=== PATIENT | female | born 1990 | race Caucasian/White ===

== ENCOUNTER 2016-11-06 12:30 | Emergency (ER) | payer SELFPAY ==
[~2016-11-06 12:30] MED LIST: AMOXICILLIN PO; AUGMENTIN PO; BACTRIM DS TABL1 TAB PO; BIRTH CONTROL PILL PO; GENTAK3.5 GM OP; IBUPROFEN PO; NUVARING V1 VAG.RING VG; PEN-VEE K PO; PRENATAL1 TA1
== END 2016-11-06 13:15 | disposition home or self-care (01) ==
LOC: SED 12:30
DX: J02.9 Acute pharyngitis, unspecified (principal); F17.210 Nicotine dependence, cigarettes, uncomplicated
CPT/HCPCS: 99282